=== PATIENT | female | born 1980 | race Caucasian/White ===

== ENCOUNTER 2017-04-08 12:33 | Emergency (ER) | payer OTHER, SELFPAY ==
[2017-04-08 12:33] VITALS: BMI 23.5
[2017-04-08 12:41] VITALS: BP 145/76; PULSE 74; RESP 18; O2SAT 100
--- NOTE | 2017-04-08 13:38 | ED PDOC ---
HPI: CCC, URI, Sore Throat Time Seen by Provider: 04/08/17 12:42 Chief Complaint (Nursing): Flu-like Symptoms Chief Complaint (Provider): Sore throat, neck pain History Per: Patient History/Exam Limitations: no limitations Have you had recent travel within the past 21 days to any of the following countries: [place], [place], [place] or [place]?: No Onset/Duration Of Symptoms: Days (3) Current Symptoms Are (Timing): Still Present Location Of Pain: Throat Sick Contacts (Context): None Associated Symptoms: Fever, Sore Throat Severity: Moderate Additional History Per: Patient Additional Complaint(s): The pt is a 37yo female, presents to the ED for evaluation of sore throat and anterior neck pain with associated fever for the past 3 days. Pt reports tmax as 101 degrees and states she has not taken any medications for her symptoms. Pt denies any recent travel or sick contacts. Offers no additional medical complaints. Past Medical History Reviewed: Historical Data, Nursing Documentation, Vital Signs Vital Signs: Last Vital Signs Temp 100.6 F H 04/08/17 12:38 Pulse 74 04/08/17 12:38 Resp 18 04/08/17 12:38 BP 145/76 04/08/17 12:38 Pulse Ox 100 04/08/17 13:39 - Medical History PMH: No Chronic Diseases - Surgical History Surgical History: No Surg Hx - Family History Family History: States: Unknown Family Hx - Social History Current smoker - smoking cessation education provided: No Alcohol: None Drugs: Denies - Home Medications Home Medications: Ambulatory Orders Medication Instructions Recorded Ibuprofen [Motrin Tab] 800 mg PO Q6H PRN #20 tab 07/26/15 Doxycycline Hyclate 100 mg PO BID #14 tablet 12/05/15 Metronidazole [Flagyl] 500 mg PO BID #14 tab 12/05/15 oxyCODONE/Acetaminophen [Percocet 1 ea PO Q6H PRN #15 tab 12/05/15 5/325 mg Tab] Azithromycin [Zithromax] 250 mg PO DAILY #6 tab 04/08/17 - Allergies Allergies/Adverse Reactions: Allergies Allergy/AdvReac Type Severity Reaction Status Date / Time Penicillins Allergy RASH Verified 12/05/15 14:35 Review of Systems ROS Statement: Except As Marked, All Systems Reviewed And Found Negative Constitutional: Positive for: Fever ENT: Positive for: Throat Pain Musculoskeletal: Positive for: Neck Pain Physical Exam - Reviewed Nursing Documentation Reviewed: Yes Vital Signs Reviewed: Yes - Physical Exam Appears: Positive for: Well, Non-toxic, No Acute Distress Head Exam: Positive for: ATRAUMATIC, NORMAL INSPECTION, NORMOCEPHALIC Skin: Positive for: Normal Color, Warm Eye Exam: Positive for: Normal appearance ENT: Positive for: Normal ENT Inspection, TM Is/Are (normal), Pharyngeal Erythema, Tonsillar Exudate, Tonsillar Swelling, Other (uvula is midline) Neck: Positive for: Normal, Supple Cardiovascular/Chest: Positive for: Regular Rate, Rhythm Respiratory: Positive for: Normal Breath Sounds. Negative for: Respiratory Distress Lymphatic: Positive for: Adenopathy (anterior cervical adenopathy noted) Neurologic/Psych: Positive for: Alert, Oriented - ECG O2 Sat by Pulse Oximetry: 100 (RA) Pulse Ox Interpretation: Normal Medical Decision Making Medical Decision Making: Time: 1300 Impression: URI Plan: -- Tylenol 650 mg PO Time: 1330 Pt stable for d/c home. Will give Rx Zithromax. Diagnosis: Strep Throat Scribe Attestation: Documented by Shira Avalos, acting as a scribe for OLIVIA Chauhan Provider Attestation: All medical record entries made by the Scribe were at my direction and personally dictated by me. I have reviewed the chart and agree that the record accurately reflects my personal performance of the history, physical exam, medical decision making, and the department course for this patient. I have also personally directed, reviewed, and agree with the discharge instructions and disposition. Disposition - Clinical Impression Clinical Impression: Strep pharyngitis Counseled Patient/Family Regarding: Diagnosis, Need For Followup, Rx Given - Disposition Referrals: [facility] [Outside] Disposition: Routine/Home Disposition Time: 13:38 Condition: GOOD Prescriptions: Azithromycin [Zithromax] 250 mg PO DAILY #6 tab Instructions: Strep Throat (ED) Print Language: [id number]
[2017-04-08 15:02] VITALS: TEMP 99
== END 2017-04-08 13:52 | disposition home or self-care (01) ==
LOC: H.ER 12:33
DX: J02.0 Streptococcal pharyngitis (principal); Z88.0 Allergy status to penicillin

== ENCOUNTER 2018-03-28 13:38 | Emergency (ER) | payer SELFPAY ==
[2018-03-28 13:38] VITALS: BMI 23.5
--- NOTE | 2018-03-28 14:31 | ED PDOC ---
HPI: Back Time Seen by Provider: 03/28/18 13:56 Chief Complaint (Nursing): Back Pain Chief Complaint (Provider): Back Pain History Per: Patient Onset/Duration Of Symptoms: Days (x3) Current Symptoms Are (Timing): Still Present Quality Of Discomfort: "Pain" Additional Complaint(s): 38 year old female with no significant past medical history presents to the emergency department complaining of low back pain x 3 days with pain and numbness to left leg. Patient is able to ambulate but with pain. She denies bowel or bladder dysfunction. Patient has been taking Advil which has helped only somewhat. She denies any fall or trauma. PMD: [facility] Past Medical History Reviewed: Historical Data, Nursing Documentation, Vital Signs Vital Signs: Last Vital Signs Temp 98.7 F 03/28/18 13:52 Pulse 61 03/28/18 13:52 Resp 18 03/28/18 13:52 BP 114/64 03/28/18 13:52 Pulse Ox 100 03/28/18 13:52 - Medical History PMH: No Chronic Diseases - Surgical History Surgical History: No Surg Hx - Family History Family History: States: No Known Family Hx - Living Arrangements Living Arrangements: With Family - Social History Current smoker - smoking cessation education provided: No Alcohol: None Drugs: Denies - Home Medications Home Medications: Ambulatory Orders Medication Instructions Recorded Ibuprofen [Motrin Tab] 800 mg PO Q6H PRN #20 tab 07/26/15 Doxycycline Hyclate 100 mg PO BID #14 tablet 12/05/15 Metronidazole [Flagyl] 500 mg PO BID #14 tab 12/05/15 oxyCODONE/Acetaminophen [Percocet 1 ea PO Q6H PRN #15 tab 12/05/15 5/325 mg Tab] Azithromycin [Zithromax] 250 mg PO DAILY #6 tab 04/08/17 Cyclobenzaprine [Cyclobenzaprine 10 mg PO TID PRN #20 tab 03/28/18 HCl] Naproxen [Naprosyn] 500 mg PO BID #20 tab 03/28/18 predniSONE [Prednisone] 20 mg PO BID #12 tab 03/28/18 - Allergies Allergies/Adverse Reactions: Allergies Allergy/AdvReac Type Severity Reaction Status Date / Time acetaminophen Allergy RASH Verified 03/28/18 13:52 Penicillins Allergy RASH Verified 03/28/18 13:52 Review of Systems ROS Statement: Except As Marked, All Systems Reviewed And Found Negative Constitutional: Negative for: Fever, Chills Cardiovascular: Negative for: Chest Pain Respiratory: Negative for: Cough Gastrointestinal: Negative for: Nausea, Vomiting Genitourinary Female: Negative for: Dysuria, Frequency, Incontinence, Hematuria Musculoskeletal: Positive for: Back Pain, Leg Pain (left) Physical Exam - Reviewed Nursing Documentation Reviewed: Yes Vital Signs Reviewed: Yes - Physical Exam Appears: Positive for: Well, Non-toxic, Uncomfortable Head Exam: Positive for: ATRAUMATIC, NORMOCEPHALIC Skin: Positive for: Normal Color. Negative for: Rash Eye Exam: Positive for: Normal appearance Neck: Positive for: Painless ROM Cardiovascular/Chest: Positive for: Regular Rate, Rhythm Respiratory: Positive for: Normal Breath Sounds. Negative for: Wheezing, Respiratory Distress Gastrointestinal/Abdominal: Positive for: Soft. Negative for: Tenderness Back: Positive for: Other (tenderness to lower lumbar region with palpable muscle spasm, negative bilateral straight leg raise) Extremity: Positive for: Normal ROM (upper and lower extremities) Neurologic/Psych: Positive for: Alert, Oriented - Laboratory Results Urine POC: Negative Urine dip results: Negative for: Leukocyte Esterase, Blood, Nitrate, Ketones, Glucose, Bilirubin, Protein - ECG O2 Sat by Pulse Oximetry: 100 (RA) Pulse Ox Interpretation: Normal - Other Rad LS Spine X-ray X-Ray: Interpreted by Me, Viewed By Me X-Ray Interpretation: no fx, no dis Medical Decision Making Medical Decision Making: Time: 1356 Initial Impression: 38 year old female back pain and left leg pain Initial Plan: --Urine --Urine Dipstick --Medrol 125 mg IM --Toradol 30 mg IM --Valium 5 mg PO Patient is aware of all diagnostic testing results. She reports improvement to pain s/p meds given. Patient was given rx, naprosyn, flexeril and prednisone. She was advised to follow up with clinic for further evaluation. Scribe Attestation: Documented by Kathy Goddard, acting as a scribe for Farideh Sloan PA-C Provider Scribe Attestation: All medical record entries made by the Scribe were at my direction and personally dictated by me. I have reviewed the chart and agree that the record accurately reflects my personal performance of the history, physical exam, medical decision making, and the department course for this patient. I have also personally directed, reviewed, and agree with the discharge instructions and disposition. Disposition - Clinical Impression Clinical Impression: Back pain, Sciatica - Patient ED Disposition Is Patient to be Admitted: No Counseled Patient/Family Regarding: Studies Performed, Diagnosis, Need For Followup, Rx Given - Disposition Referrals: [facility] [Outside] Disposition: Routine/Home Disposition Time: 15:33 Condition: STABLE Additional Instructions: TAKE RX MEDS DIRECTED. REST AND AVOID HEAVY LIFTING. FOLLOW UP IN 2-3 DAYS WITH CLINIC. Prescriptions: Cyclobenzaprine [Cyclobenzaprine HCl] 10 mg PO TID PRN #20 tab PRN Reason: Muscle Spasm Naproxen [Naprosyn] 500 mg PO BID #20 tab predniSONE [Prednisone] 20 mg PO BID #12 tab Instructions: Sciatica Exercises, Sciatica (DC), Low Back Pain (DC), Back Exercises, Back Precautions Forms: [employer] (Bulgarian) Print Language: PAKISTANI
[2018-03-28 15:54] VITALS: BP 122/77; PULSE 83; RESP 15; TEMP 98.4; O2SAT 98
--- NOTE | 2018-03-28 15:59 | RAD ---
PROCEDURE: Radiographs of the Lumbar Spine. HISTORY: Back pain COMPARISON: No prior. FINDINGS: BONES: There is normal alignment of the lumbar vertebral bodies. There is normal lumbar lordosis. There is no acute fracture, spondylolysis or spondylolisthesis. Bone mineralization is normal. DISC SPACES: There is mild degenerative disc disease at L5-S1 with mild reduced disc height and facet. Arthropathy the remaining disc heights are preserved. OTHER FINDINGS: There are no pathologic soft tissue calcifications. Both sacroiliac joints are normal. IMPRESSION: No acute fracture, spondylolysis or spondylolisthesis. Mild degenerative disc disease at L5-S1.
== END 2018-03-28 15:53 | disposition home or self-care (01) ==
LOC: H.ER 13:38
DX: M54.5 Low back pain (principal); M54.30 Sciatica, unspecified side
CPT/HCPCS: 72100; 81025; 96372; 99283; J1885; J2930